=== PATIENT | male | born 1950 | race African-American/Black ===

== ENCOUNTER 2022-05-08 16:03 | Emergency (ER) | payer OTHER ==
[~2022-05-08] VITALS: Ht 177.8 cm; Wt 90.9 kg
[2022-05-08] MEDS ORDERED: LIDOCAINE/PF 1% 2 ML VIAL IM ONE (17:30)
[2022-05-08] MEDS ORDERED: CefTRIAXone SODIUM 1 GM/VIAL IM ONE (17:30)
[2022-05-08] MEDS ORDERED: AZITHROMYCIN 500 MG TABLET PO ONE (17:30)
[2022-05-08 17:32] LABS: APPEARANCE,URINE HAZY (CLEAR); BILIRUBIN,URINE NEGATIVE (NEGATIVE); GLUCOSE, URINE (UA) NEGATIVE (NEGATIVE); KETONES,URINE TRACE mg/dL (NEGATIVE); LEUKOCYTE ESTERASE ,URINE LARGE (NEGATIVE); NITRATE,URINE POSITIVE (NEGATIVE); OCCULT BLOOD,URINE TRACE (NEGATIVE); PH,URINE 5.5 (5.0-8.0); PROTEIN,URINE TRACE mg/dL (NEGATIVE); SPECIFIC GRAVITIY, URINE 1.027 (1.003-1.030); UROBILINOGEN,URINE <=1.0 mg/dL (<=1.0)
[2022-05-08 17:38] LABS: RBC,URINE 0-2 /HPF (0-2)
[2022-05-08 17:39] LABS: BACTERIA,URINE Many /HPF (None Seen); SQUAMOUS EPITHELIAL CELL,UR Few /LPF (None Seen); WBC,URINE 26-50 /HPF (0-5)
[2022-05-08 17:54] VITALS: BP 140/86
== END 2022-05-08 17:54 | disposition home or self-care (01) ==
LOC: EMS 16:05
DX: A64 Unspecified sexually transmitted disease (principal); B35.4 Tinea corporis; I10 Essential (primary) hypertension; F12.90 Cannabis use, unspecified, uncomplicated
CPT/HCPCS: 81001; 87086; 87491; 87591; 96372; 99283; J0696; J3490; Q9967

== ENCOUNTER 2022-07-07 21:12 | Emergency (ER) | payer OTHER ==
[~2022-07-07] VITALS: Ht 177.8 cm; Wt 136.0 kg
[2022-07-07 22:01] VITALS: BP 141/83
[2022-07-07] MEDS ORDERED: PROPARACAINE HCL 0.5% 15 ML OPHTHALMIC SOLUTION OU ONE (23:00)
[2022-07-07] MEDS ORDERED: FLUORESCEIN SODIUM 1 MG STRIP ONE (23:16)
== END 2022-07-08 01:46 | disposition left against medical advice (07) ==
LOC: EMS 21:13
DX: H53.9 Unspecified visual disturbance (principal); H43.393 Other vitreous opacities, bilateral; F10.20 Alcohol dependence, uncomplicated; F12.90 Cannabis use, unspecified, uncomplicated; I10 Essential (primary) hypertension; Z90.89 Acquired absence of other organs
CPT/HCPCS: 99173; 99283